=== PATIENT | male | born 1935 | race Caucasian/White ===

== ENCOUNTER 2025-01-15 09:45 | Outpatient (CLI) | payer MEDICARE ==
[2025-01-15 11:54] LABS: Estimated GFR - POC 38.0
== END 2025-01-15 09:46 | disposition home or self-care (01) ==
LOC: CSHCT 09:45
PROVIDERS: ATTEND Internal Medicine
DX: K86.89 Other specified diseases of pancreas (principal); R91.8 Other nonspecific abnormal finding of lung field
CPT/HCPCS: 74178; 82565

== ENCOUNTER 2025-03-02 11:50 | Outpatient (CLI) | payer MEDICARE | END 2025-03-02 11:51 | disposition home or self-care (01) | LOC: CSHLAB 11:50 | PROVIDERS: ATTEND Surgery | DX: Z01.818 Encounter for other preprocedural examination (principal); C25.3 Malignant neoplasm of pancreatic duct | CPT/HCPCS: 93005; 93010 ==